=== PATIENT | female | born 1980 | race Caucasian/White ===

== ENCOUNTER 2017-09-11 23:29 | Emergency (ER) | payer OTHER ==
[~2017-09-11] VITALS: Ht 167.6 cm; Wt 98.7 kg
[~2017-09-11 23:29] MED LIST: DRIS8000 PO; IBUP800T23 PO; LEVO.05 PO; PREN0.01 PO; ROBA750T3 PO
[2017-09-11 23:31] VITALS: BP 147/89; PULSE 97; RESP 18; TEMP 98.4; O2SAT 100
--- NOTE | 2017-09-12 00:20 | PD ---
HPI Chief Complaint: Skin Problem Time Seen by Provider: 00:19 Travel History International Travel<30 days: No Contact w/Intl Traveler<30days: No Traveled to known affect area: No History of Present Illness HPI 36-year-old female presents to the emergency department by private transportation for complaint of left fifth finger infection since Friday. Patient has been on antibiotic Bactrim 2 days with increasing postural size. No spontaneous drainage. Patient is right-handed. Patient denies any known puncture wound or injury. Patient states that she called a doctor [facility] that started her on an antibiotic Bactrim and noticed that area seemed to be increasing in size where she is noted to have a pustule. Patient was encouraged by the managing physician to come to the emergency department if the injury or site was increasing in size or worsening. Patient had no fever chills no ascending erythema and no axillary lymphadenopathy. Patient is not diabetic. PFSH Past Medical History Narrative Medical Hypothyroidism; tobacco use; nursing notes reviewed Reproductive: Yes (7 WEEKS POST PART) Thyroid Disease: Yes (hypothyroid) Tetanus Vaccination: > 5 Years Influenza Vaccination: No ?: Not LMP: 09/07/17 : 2 Para: 2 Past Surgical History Surgical History: No Previous Surgery Social History Alcohol Use: No Tobacco Use: Yes (1/2 pack) Substance Use: No Allergies-Medications (Allergen,Severity, Reaction): Coded Allergies: No Known Allergies (Unverified , 02/09/14) Reported Meds & Prescriptions Reported Meds & Active Scripts Active Clindamycin (Clindamycin HCl) 150 Mg Cap 300 Mg PO Q6H 7 Days Bactroban Topical (Mupirocin) 22 Gm Cream 1 Applic TOPICAL BID Review of Systems Except as stated in HPI: all other systems reviewed are Neg Physical Exam Narrative GENERAL: Well-developed well-nourished female in no acute distress no respiratory distress SKIN: Warm and dry. MUSCULOSKELETAL: No cyanosis, or edema. Attention left fifth finger just proximal to the nail there is a subcentimeter pustule with tense swelling on the dorsum of the digit was intact flexion extension of the digit and capillary refill less than 2 second with intact sensation. Base of pustule is erythematous with mild induration no fluctuance of the induration; nailbed is intact. Data Data Last Documented VS Vital Signs Date Time Temp Pulse Resp B/P (MAP) Pulse Ox O2 Delivery O2 Flow Rate FiO2 09/11/17 23:31 98.4 97 18 147/89 (108) 100 Orders Orders Wound Culture And Gram Stain (09/12/17 00:20) Clindamycin (Cleocin) (09/12/17 00:30) Wound Care (09/12/17 00:22) Ed Discharge Order (09/12/17 00:45) MDM Medical Decision Making Medical Screen Exam Complete: Yes Emergency Medical Condition: Yes Medical Record Reviewed: Yes Differential Diagnosis Cellulitis, pustule, abscess, paronychia, foreign body Narrative Course Patient has an intact pustule that requires interruption and collection of continence for wound culture and sensitivity. After informed verbal consent site was cleansed and an area dried after site dried an 18-gauge needle was used to interrupt the pustule with purulent drainage expressed and collected on cotton swab device for. Afterwards area was again cleansed with Betadine and copious saline irrigation. Polysporin dressing applied. Patient given clindamycin 300 mg 1 dose. Patient is encouraged to complete course of clindamycin and also given prescription for Bactroban. Patient is encouraged to return for a 48 hour wound check at which time pulmonary results of wound culture and sensitivity should be available. Patient is to take acetaminophen and/or ibuprofen as needed for minor pain/pain associated inflammation or for fever. Patient is aware of recommendation and need for close follow-up. Diagnosis Primary Impression: Cellulitis of finger of left hand Referrals: Primary Care Physician call for appointment Patient Instructions: General Instructions Med/Other Pt SpecificInfo: Prescription(s) given Scripts Clindamycin (Clindamycin) 150 Mg Cap 300 MG PO Q6H for Infection for 7 Days, #56 CAP 0 Refills Prov: Elisa Schreiber MD 09/12/17 Mupirocin Topical (Bactroban Topical) 22 Gm Cream 1 APPLIC TOPICAL BID for Mgmt Bacterial Infection, #1 TUBE 0 Refills Prov: Elisa Schreiber MD 09/12/17 Disposition: 01 DISCHARGE HOME Condition: Stable Elisa Schreiber MD Sep 12, 2017 00:20
[2017-09-12] MEDS ORDERED: MUPI2%T TOPICAL ×2 (00:22→01:07)
[2017-09-12] MEDS ORDERED: CLIN150C14 PO ×2 (00:22→01:07)
[2017-09-12] MEDS ORDERED: CLINDAMYCIN 150 MG CAP PO ONE (00:30)
== END 2017-09-12 01:19 | disposition home or self-care (01) ==
LOC: PHED 23:29
DX: L03.012 Cellulitis of left finger (principal); B95.61 Methicillin susceptible Staphylococcus aureus infection as the cause of diseases classified elsewhere; E03.9 Hypothyroidism, unspecified; F17.210 Nicotine dependence, cigarettes, uncomplicated
CPT/HCPCS: 10060; 86403; 87070; 87186; 87205; 99283